=== PATIENT | male | born 1965 | race Two or more races ===

== ENCOUNTER 2018-01-19 08:12 | Day surgery (SDC) | payer OTHER ==
[~2018-01-19] VITALS: Ht 172.7 cm; Wt 117.9 kg
[~2018-01-19 08:12] MED LIST: AMLO10CA42 PO; ASPI81TA27 PO; ATOR40TA52 PO; LOSA25TA9 PO; METF-490 PO; METO25TA62 PO; MULTCAP45 PO; OMEGCAP PO; PANT1INJ3 PO; TEST1.62 TD; TRIA37.577 PO; TRIM300C23 PO
[2018-01-19] MEDS ORDERED: LIDOCAINE 2%HCL (LOCAL ANESTH.) INJ 10ml MDV ONE (09:27)
[2018-01-19] MEDS ORDERED: IODIXANOL 320MG/ML 100ML BTL IV ONE (09:27)
[2018-01-19] MEDS ORDERED: VERAPAMIL 2.5MG/ML INJ 2ML VIAL IV ONE (09:36)
[2018-01-19] MEDS ORDERED: ANGIOMAX 250 MG VIAL IV ONE (09:36)
[2018-01-19] MEDS ORDERED: SODIUM CHL 0.9% 0 ML ONE (09:37)
[2018-01-19] MEDS ORDERED: MIDAZOLAM HCL 1MG/1ML-2 ML VIAL ONE (09:37)
[2018-01-19] MEDS ORDERED: fentaNYL CITRATE 100 MCG/2 ML VL ONE (09:37)
[2018-01-19] MEDS ORDERED: HEPARIN SODIUM (PORCINE) 5000 UNITS/ML 1ML VIAL ONE (10:07)
== END 2018-01-19 12:45 | disposition home or self-care (01) ==
LOC: CATH 08:12
PROVIDERS: ATTEND Internal Medicine
DX: I25.10 Atherosclerotic heart disease of native coronary artery without angina pectoris (principal); I10 Essential (primary) hypertension; E66.9 Obesity, unspecified; E11.9 Type 2 diabetes mellitus without complications; E78.5 Hyperlipidemia, unspecified; I73.9 Peripheral vascular disease, unspecified; Z79.84 Long term (current) use of oral hypoglycemic drugs; Z79.899 Other long term (current) drug therapy; Z79.82 Long term (current) use of aspirin; Z68.39 Body mass index [BMI] 39.0-39.9, adult
CPT/HCPCS: 93005; 93458; 99152; A6257; C1769; C1894; J1644; J2001; J2250; J3010; J7030; Q9967

== ENCOUNTER 2023-09-27 08:13 | Day surgery (SDC) | payer OTHER ==
[2023-09-27] VITALS (8 sets, daily range): BP systolic 93–112; BP diastolic 55–65; PULSE 54–59; RESP 12; O2SAT 90–98
[~2023-09-27] VITALS: Ht 172.7 cm; Wt 117.9 kg
[~2023-09-27 08:13] MED LIST changes: -AMLO10CA42 PO; +ASPI-543 PO; -ASPI81TA27 PO; +GLUC-105 VI; +LOSA-533 PO; -LOSA25TA9 PO; -METO25TA62 PO; +METO25TA93 PO; -TRIM300C23 PO
[2023-09-27] MEDS ORDERED: ANGIOMAX 250 MG VIAL IV ONE (09:02)
[2023-09-27] MEDS ORDERED: MIDAZOLAM HCL 2MG/2ML 2ml VIAL (1mg/ml) ONE (09:03)
[2023-09-27] MEDS ORDERED: fentaNYL CITRATE 100 MCG/2 ML VL ONE (09:03)
[2023-09-27] MEDS ORDERED: SODIUM CHL 0.9% 0 ML ONE (09:03)
[2023-09-27] MEDS ORDERED: VERAPAMIL 2.5MG/ML INJ 2ML VIAL IV ONE (09:03)
[2023-09-27] MEDS ORDERED: HEPARIN SODIUM (PORCINE) 5000 UNITS/ML 1ML VIAL ONE (09:03)
== END 2023-09-27 12:15 | disposition home or self-care (01) ==
LOC: CATH 08:13
PROVIDERS: ATTEND Internal Medicine
DX: I25.119 Atherosclerotic heart disease of native coronary artery with unspecified angina pectoris (principal); R94.39 Abnormal result of other cardiovascular function study; Z79.82 Long term (current) use of aspirin; Z79.899 Other long term (current) drug therapy; Z98.890 Other specified postprocedural states
CPT/HCPCS: 93005; 93458; C1725; C1894; J1644; J2250; J3010; 99152